=== PATIENT | female | born 1945 | race Caucasian/White ===

== ENCOUNTER 2016-12-22 11:57 | Day surgery (SDC) | payer MEDICARE, OTHER ==
[2016-12-19 11:58] LABS: HEMATOCRIT 37.2 % (36.0-48.0); HEMOGLOBIN 11.9 g/dL (12.0-16.0)
[2016-12-19 12:08] LABS: BUN (BLOOD UREA NITROGEN) 16 MG/DL (6-23); CALCIUM, SERUM 9.2 MG/DL (8.5-10.4); CHLORIDE, SERUM 105 MMOL/L (96-112); CO2 (CARBON DIOXIDE) 28 MMOL/L (24-34); CREATININE 0.93 MG/DL (0.55-1.02); GFR AFRICAN AMERICAN 71 ML/MIN (>=60); GFR NON AFRICAN AMERICAN 61 ML/MIN (>=60); GLUCOSE, SERUM 93 MG/DL (60-99); POTASSIUM, SERUM 4.5 MMOL/L (3.5-5.3); SODIUM, SERUM 141 MMOL/L (135-148)
[~2016-12-22 11:57] MED LIST: ADVIL PO; ASAB PO; CENTRUM TAB1 TAB PO; CLARIT10 PO; CLINDA150 PO; COZ50 PO; FISH OIL1200 MG PO; PREV30 PO; ZANTAC 75 PO
[2016-12-22 12:52] LABS: INTERNATIONAL NORMAL RATI 1.3 UNITS (-); PARTIAL THROMBO TIME 37.7 SEC (22.5-37.2); PROTIME (NOT ORD) 16.2 SEC (12.0-14.5)
== END 2016-12-22 17:06 | disposition home or self-care (01) ==
LOC: SDC 11:57
PROVIDERS: Otolaryngology
PROC: 0HX4XZZ Transfer Neck Skin, External Approach (ICD-10-PCS; principal; 2016-12-22 13:15)
DX: C83.71 Burkitt lymphoma, lymph nodes of head, face, and neck (principal); E11.9 Type 2 diabetes mellitus without complications; I10 Essential (primary) hypertension; J32.9 Chronic sinusitis, unspecified; M19.90 Unspecified osteoarthritis, unspecified site; Z79.52 Long term (current) use of systemic steroids; Z79.82 Long term (current) use of aspirin; Z79.899 Other long term (current) drug therapy; Z90.89 Acquired absence of other organs; Z98.890 Other specified postprocedural states; Z88.8 Allergy status to other drugs, medicaments and biological substances; Z90.49 Acquired absence of other specified parts of digestive tract
CPT/HCPCS: 80048; 85014; 85018; 85610; 85730; 88184; 88185; 88309; 88333; 88341; 88342; 93005; A9270-GY; J0330; J0690; J2250; J2370; J2405; J2710; J3010